=== PATIENT | female | born 1970 | race Hispanic/Latino ===

== ENCOUNTER 2018-01-16 14:39 | Inpatient (IN) | payer BC ==
[~2018-01-16] VITALS: Ht 154.9 cm; Wt 81.2 kg
[2018-01-16] MEDS ORDERED: IBUPROFEN 600 MG TAB PO STA (15:38)
[2018-01-16] MEDS ORDERED: HYDROMORPHONE 1MG/1ML INJ IV STA (15:38)
[2018-01-16] MEDS ORDERED: ONDANSETRON HCL INJ 2 MG/ML VIAL IV STA (15:38)
[2018-01-16 16:01] LABS: BASOPHILS % 0.4 % (0.0-1.0); EOSINOPHILS # (AUTO) 0.1 (0.0-0.4); EOSINOPHILS % 0.9 % (0.0-6.0); HEMATOCRIT 34.3 % (34.2-44.1); HEMOGLOBIN 11.2 g/dL (12.0-16.0); LYMPHOCYTES # (AUTO) 1.7 (1.0-3.2); MEAN CORPUSCULAR HEMOGLOBIN 29.2 pg (28-32); MEAN CORPUSCULAR HGB CONC 32.7 g/dL (31-35); MEAN CORPUSCULAR VOLUME 89.6 fL (81-99); MONOCYTES # (AUTO) 0.9 (0.2-0.8); MONOCYTES % 8.2 % (4.4-11.3); NEUTROPHILS # (AUTO) 8.4 (2.1-6.9); NEUTROPHILS % 74.8 % (38.7-80.0); PLATELET COUNT 391 x10e3/uL (140-360); RED BLOOD COUNT 3.83 x10e6/uL (3.6-5.1); RED CELL DISTRIBUTION WIDTH 13.4 % (11.7-14.4)
--- NOTE | 2018-01-16 16:02 | Diagnostic Imaging Report ---
EXAM: XR CHEST 1 VIEW DATE: 01/16/2018 3:21 PM INDICATION: Postoperative. Swelling. COMPARISON: None FINDINGS: Lines and Tubes: None Heart and Mediastinum: No acute cardiomediastinal findings. Ill-defined soft tissue prominence right paratracheal region statistically confluence vascular structures. Lungs and Pleura: Questionable retrocardiac opacity on the left. Bones and Soft Tissues: No acute findings. IMPRESSION: 1. Minimal retrocardiac opacity on the left statistically atelectasis. Correlation recommended. Signed by: Dr. Julio Copeland MD on 01/16/2018 3:59 PM
[2018-01-16 16:12] LABS: INR 1.41; PROTHROMBIN TIME 16.2 seconds (11.9-14.5)
[2018-01-16 16:13] LABS: PARTIAL THROMBOPLASTIN TIME 41.9 seconds (23.8-35.5)
[2018-01-16 16:20] LABS: ALANINE AMINOTRANSFERASE 165 IU/L (0-55); ALBUMIN 2.9 g/dL (3.5-5.0); ALBUMIN/GLOBULIN RATIO 0.7 (0.8-2.0); ALKALINE PHOSPHATASE 260 IU/L (40-150); ANION GAP 13.6 mmol/L (8-16); BLOOD UREA NITROGEN 8 mg/dL (7-26); BUN/CREATININE RATIO 9 (6-25); CALCIUM 9.1 mg/dL (8.4-10.2); CARBON DIOXIDE 24 mmol/L (22-29); CHLORIDE 103 mmol/L (98-107); CREATININE, SERUM 0.91 mg/dL (0.57-1.11); EST GLOMERULAR FILTRATION RATE > 60 ML/MIN (60-); GLUCOSE 93 mg/dL (74-118); POTASSIUM 3.6 mmol/L (3.5-5.1); SODIUM 137 mmol/L (136-145)
[2018-01-16] MEDS ORDERED: LIDOCAINE HCL 1% LOCAL INJ 20 ML VIAL ONE (16:56)
[2018-01-16] MEDS ORDERED: LIDOCAINE 1% 5ML-MPF INJ ONE (17:00)
[2018-01-16] MEDS: PIPER-TAZ 3.375 GM 50 ML IV SCH (17:03)
[2018-01-16] MEDS: VANCOMYCIN 1GM/NS 250 ML 250 ML IV SCH ×2 (17:30→21:00)
[2018-01-16] MEDS ORDERED: ONDANSETRON HCL INJ 2 MG/ML VIAL IV PRN (18:15)
[2018-01-16] MEDS ORDERED: PRAVASTATIN SOD20 MG PO (18:53)
[2018-01-16] MEDS ORDERED: LEVOTHYROXINE200 MCG PO (18:53)
[2018-01-16] MEDS ORDERED: LISINOPRIL10 MG PO (18:53)
[2018-01-16] MEDS ORDERED: PIPER-TAZ 3.375 GM 50 ML IV SCH (19:00)
[2018-01-16] MEDS: SODIUM CHLORIDE 0.9% 1000ML 1,000 ML IV SCH (19:41)
[2018-01-16 20:57] VITALS: BP 118/66
[2018-01-16 21:00] VITALS: BP 118/66
[2018-01-16 21:02] LABS: LYMPHOCYTES,BODY FLUID 15 %; MONO/MACROPHG,BODY FLUID 1 %; NEUTROPHILS,BODY FLUID 84 %
[2018-01-16 23:00] LABS: BODY FLUID APPEARANCE CLOUDY; BODY FLUID COLOR YELLOW; BODY FLUID TYPE PERITONEAL
[2018-01-16 23:04] LABS: RBC,BODY FLUID 1559 cells/uL; WBC,BODY FLUID 4034 cells/uL
[2018-01-16 23:39] LABS: BILIRUBIN,URINE NEGATIVE (NEGATIVE); CLARITY,URINE CLEAR (CLEAR); COLOR,URINE YELLOW (YELLOW); EPITHELIAL CELLS,URINE FEW /LPF; KETONES,URINE NEGATIVE (NEGATIVE); LEUKOCYTE ESTERASE ,URINE NEGATIVE (NEGATIVE); NITRITE,URINE NEGATIVE (NEGATIVE); PROTEIN,URINE DIPSTICK NEGATIVE (NEGATIVE); RBC,URINE 0-5 /HPF (0-5); URINE UROBILINOGEN 0.2 mg/dL (0.2 - 1); WBC,URINE (MAN) 0-5 /HPF (0-5)
[2018-01-17] VITALS (9 sets, daily range): BP systolic 96–120; BP diastolic 53–62
[2018-01-17] MEDS: PIPER-TAZ 3.375 GM 50 ML IV SCH ×4 (00:29→17:10)
[2018-01-17] MEDS: SODIUM CHLORIDE 0.9% 1000ML 1,000 ML IV SCH ×2 (05:17→16:00)
[2018-01-17 06:03] LABS: BASOPHILS % 0.4 % (0.0-1.0); EOSINOPHILS # (AUTO) 0.2 (0.0-0.4); EOSINOPHILS % 2.1 % (0.0-6.0); HEMATOCRIT 30.5 % (34.2-44.1); HEMOGLOBIN 9.8 g/dL (12.0-16.0); LYMPHOCYTES # (AUTO) 1.6 (1.0-3.2); LYMPHOCYTES % 14.7 % (18.0-39.1); MEAN CORPUSCULAR HGB CONC 32.1 g/dL (31-35); MEAN CORPUSCULAR VOLUME 90.2 fL (81-99); MONOCYTES % 9.5 % (4.4-11.3); NEUTROPHILS % 72.8 % (38.7-80.0); PLATELET COUNT 312 x10e3/uL (140-360); RED BLOOD COUNT 3.38 x10e6/uL (3.6-5.1); RED CELL DISTRIBUTION WIDTH 13.4 % (11.7-14.4)
[2018-01-17 06:23] LABS: ANION GAP 9.8 mmol/L (8-16); BLOOD UREA NITROGEN 11 mg/dL (7-26); BUN/CREATININE RATIO 14 (6-25); CALCIUM 8.2 mg/dL (8.4-10.2); CARBON DIOXIDE 25 mmol/L (22-29); CHLORIDE 110 mmol/L (98-107); EST GLOMERULAR FILTRATION RATE > 60 ML/MIN (60-); GLUCOSE 101 mg/dL (74-118); POTASSIUM 3.8 mmol/L (3.5-5.1); SODIUM 141 mmol/L (136-145)
[2018-01-17] MEDS: ACETAMINOPHEN 325 MG TAB PO PRN ×3 (08:59→22:35)
[2018-01-17] MEDS ORDERED: VANCOMYCIN 1GM/NS 250 ML 250 ML IV SCH (09:00)
[2018-01-17] MEDS: VANCOMYCIN 1GM/NS 250 ML 250 ML IV SCH ×2 (10:09→21:49)
--- NOTE | 2018-01-17 14:54 | Consultation ---
DATE OF CONSULTATION: January 17, 2018 CHIEF COMPLAINT: Abdominal wall inflammation. HISTORY OF PRESENT ILLNESS: The patient is a 47-year-old female who is 3 weeks status post abdominoplasty down in [place]. Patient has noted progressive redness at the incision with increased swelling and discomfort. She denies fever, chills or vomiting. PAST MEDICAL HISTORY: Significant for hypothyroidism. SURGICAL HISTORY: As mentioned, positive for abdominoplasty recently. ALLERGIES: SHE HAS NO DRUG ALLERGIES. SOCIAL HABITS: She does not smoke or drink alcohol. REVIEW OF SYSTEMS: No chest pain, shortness of breath or cough. PHYSICAL EXAMINATION VITALS: Stable. She has a T-max of 100.2. GENERAL: She is awake, alert, in no apparent distress. HEENT: Sclerae are nonicteric. NECK: Supple. LUNGS: Clear. HEART: Regular rate and rhythm. ABDOMEN: Soft. There is a low transverse incision consistent with abdominoplasty. There is evidence of erythema on both sides of the incisions with edema extending to the suprapubic area. No drainage from the incisions. LABS: White cell count 11, hemoglobin 11. Creatinine of 0.9. CT scan showed a large fluid collection in the incision suggestive of abscess versus seroma. ASSESSMENT: Abdominal wall collection post abdominoplasty. PLAN: Percutaneous drainage by interventional radiology to rule out abscess formation. Will follow the patient with you. Job#: [id number]
[2018-01-17 15:28] LABS: CHOL/HDL RATIO 5.6 (3.0-3.6)
--- NOTE | 2018-01-17 15:30 | History and Physical ---
PRIMARY CARE PHYSICIAN: Dr. Mcmahan CHIEF COMPLAINT: Abdominal pain and swelling. HISTORY OF PRESENT ILLNESS: This is a 47-year-old woman with a history of obesity, who underwent a tummy tuck. Drains were removed on January 05. The patient is now developing fever, chills, sweats and rigors at home for the past 3 days with redness of the abdomen and tenderness. Therefore, she went to [place] [facility] and was sent home with some antibiotics. Now she came here due to persistence of her symptoms, rigors, fever and chills. Here, she was found to be septic with infection and was admitted for further evaluation and management. PAST MEDICAL HISTORY: Obesity, status post tummy tuck. Hypothyroidism. PAST SURGICAL HISTORY: Cholecystectomy. ALLERGIES: PER ELECTRONIC MEDICAL RECORD. FAMILY/SOCIAL HISTORY: The patient is single. She has 3 children. Occasional alcohol. No cigarettes or illicits. MEDICATIONS: Per electronic medical record. REVIEW OF SYSTEMS: Denies any dizziness or chest pain. Denies any shortness of breath. Denies any back pain. Denies any headache or visual changes. Denies any leg pain or diarrhea. PHYSICAL EXAMINATION VITAL SIGNS: Have been reviewed. GENERAL: A tired-appearing woman resting in bed. HEENT: Anicteric. Pupils are responsive to light. No oral lesions. CARDIOVASCULAR: Normal S1 and S2. LUNGS: Moderate breath sounds. ABDOMEN: Soft, nondistended. She has a surgical site along the lower border of the abdomen slightly distended. There is erythema present. There is warmth, and there is some edema. EXTREMITIES: No edema or calf tenderness. NEUROLOGIC: Alert, appropriate, moving all extremities. SKIN: Dry. PSYCHIATRIC: Flat affect. NEUROLOGIC: Alert and oriented times 3. LABS: Reviewed. MEDICATIONS: Reviewed. ASSESSMENT: This is a 47-year-old woman. 1. Status post sepsis. 2. Transaminitis. 3. Abdominal wall cellulitis. 4. Obesity. 5. Hypothyroidism. 6. Spontaneous bacterial peritonitis. PLAN 1. Will continue with IV vancomycin and IV Zosyn. 2. Follow up cultures. 3. Surgical team has been consulted. 4. The white blood cell count in the peritoneal fluid is 4034. Will continue with the antibiotics for spontaneous bacterial peritonitis and follow up cultures. 5. Continue Synthroid. 6. Use SCDs for DVT prophylaxis. 7. Monitor closely. Scan for diabetes and obtain lipid panel. Job#: [id number] DORIS
[2018-01-17] MEDS: HYDROMORPHONE 1MG/1ML INJ IV PRN (16:00)
[2018-01-17] MEDS: DOCUSATE SODIUM 100 MG CAP PO SCH (17:10)
[2018-01-17] MEDS: SENNOSIDES 8.6 MG TAB PO SCH (17:10)
[2018-01-18] VITALS (10 sets, daily range): BP systolic 90–108; BP diastolic 52–58
[2018-01-18] MEDS: PIPER-TAZ 3.375 GM 50 ML IV SCH ×5 (00:33→23:14)
[2018-01-18] MEDS: LEVOTHYROXINE SODIUM 100 MCG TAB PO SCH (05:24)
[2018-01-18] MEDS: SODIUM CHLORIDE 0.9% 1000ML 1,000 ML IV SCH ×3 (05:24→22:44)
[2018-01-18 07:04] LABS: BASOPHILS % 0.2 % (0.0-1.0); EOSINOPHILS # (AUTO) 0.2 (0.0-0.4); EOSINOPHILS % 1.8 % (0.0-6.0); HEMATOCRIT 30.6 % (34.2-44.1); HEMOGLOBIN 9.9 g/dL (12.0-16.0); LYMPHOCYTES # (AUTO) 1.7 (1.0-3.2); LYMPHOCYTES % 14.3 % (18.0-39.1); MEAN CORPUSCULAR HEMOGLOBIN 28.8 pg (28-32); MEAN CORPUSCULAR HGB CONC 32.4 g/dL (31-35); MONOCYTES # (AUTO) 0.9 (0.2-0.8); MONOCYTES % 7.8 % (4.4-11.3); NEUTROPHILS # (AUTO) 8.9 (2.1-6.9); NEUTROPHILS % 75.4 % (38.7-80.0); PLATELET COUNT 326 x10e3/uL (140-360); RED BLOOD COUNT 3.44 x10e6/uL (3.6-5.1); RED CELL DISTRIBUTION WIDTH 13.3 % (11.7-14.4)
--- NOTE | 2018-01-18 07:08 | Progress Note ---
DATE: January 18, 2018 TIME: 6:44 a.m. OVERNIGHT: No events. REVIEW OF SYSTEMS: Denies any dizziness, chest pain, shortness of breath, fever, chills, sweats, nausea, vomiting, and diarrhea. PHYSICAL EXAMINATION VITAL SIGNS: Reviewed. GENERAL: A tired-appearing woman resting in bed. HEENT: Anicteric. CARDIOVASCULAR: Normal S1 and S2. LUNGS: Moderate breath sounds. ABDOMEN: Soft and nondistended. Old surgical site is less erythematous. There is mild tenderness. EXTREMITIES: No edema. SKIN: Dry. PSYCHIATRIC: Normal affect. NEUROLOGICAL: Alert and appropriate. LABS: Reviewed. MEDICATIONS: Reviewed. ASSESSMENT: A 47-year-old woman with: 1. Sepsis. 2. Abdominal wall cellulitis. 3. Transaminitis. 4. Obesity. 5. Hypothyroidism. 6. Spontaneous bacterial peritonitis. PLAN 1. Continue IV vancomycin and IV Zosyn. 2. Follow up cultures. 3. Follow up surgical plan. 4. All cultures negative to date. 5. Leukocytosis beginning to improve. Obtain labs today. 6. Hemoglobin A1c 5.2, LDL 114. Job#: [id number] IN
[2018-01-18 07:26] LABS: ANION GAP 10.8 mmol/L (8-16); BLOOD UREA NITROGEN 10 mg/dL (7-26); BUN/CREATININE RATIO 12 (6-25); CALCIUM 8.4 mg/dL (8.4-10.2); CARBON DIOXIDE 25 mmol/L (22-29); CHLORIDE 104 mmol/L (98-107); CREATININE, SERUM 0.84 mg/dL (0.57-1.11); EST GLOMERULAR FILTRATION RATE > 60 ML/MIN (60-); GLUCOSE 93 mg/dL (74-118); POTASSIUM 3.8 mmol/L (3.5-5.1); SODIUM 136 mmol/L (136-145)
[2018-01-18] MEDS: VANCOMYCIN 1GM/NS 250 ML 250 ML IV SCH ×2 (08:19→20:48)
[2018-01-18] MEDS ORDERED: NON-FORMULARY MEDICATION (Levothyroxine Sodium 200 MCG) PO SCH (09:00)
[2018-01-18] MEDS: SENNOSIDES 8.6 MG TAB PO SCH ×2 (09:00→17:18)
[2018-01-18] MEDS: DOCUSATE SODIUM 100 MG CAP PO SCH ×2 (09:00→17:18)
[2018-01-18] MEDS ORDERED: ACETAMINOPHEN 1000 MG/100 ML IV PRN (12:30)
[2018-01-18] MEDS ORDERED: HYDROMORPHONE 2MG/ML 2 MG/ML ML ONE (14:15)
[2018-01-18] MEDS: HYDROMORPHONE 1MG/1ML INJ IV PRN (14:22)
--- NOTE | 2018-01-18 15:33 | Diagnostic Imaging Report ---
Procedure: Ultrasound-guided anterior abdominal wall drainage graining machine operator: Dar Arevalo MD Pre-operative diagnosis: Anterior abdominal wall fluid collection Post-operative diagnosis: Anterior abdominal wall fluid collection Sedation: Local (1% subcutaneous lidocaine) Estimated blood loss: None Implants: None DISCUSSION: Informed consent was obtained from the patient and documented in the medical record. The patient was placed in the supine position. Initial ultrasound demonstrated an anterior abdominal wall collection, which extended bilaterally. The right anterior abdominal wall was prepped and draped in standard sterile fashion. 1% lidocaine was infiltrated into the skin and subcutaneous tissues for local anesthesia. Then under continuous sonographic guidance, an 18 gauge Chiba needle was advanced into the right aspect of the collection. Cloudy serous fluid was aspirated for lab. An Amplatz wire was placed into the needle. Dilatation was performed. Subsequently, a 10 Fr Uresil catheter was placed into the collection. The catheter was pigged and position confirmed by ultrasound. The catheter was connected to bag drainage. Approximately 70 cc of cloudy serous fluid was aspirated and the collection was gently irrigated with normal saline. An Ethilon suture was placed to secure the catheter. A sterile dressing was placed. The patient tolerated the procedure well. IMPRESSION: Ultrasound-guided drainage of anterior abdominal wall collection with aspiration of 70 cc of cloudy serous fluid. PLAN: Continue to flush 10 cc of normal saline to the patient and 10 cc to the bag. Awaiting microbiology results. Signed by: Dr. Dar Arevalo MD on 01/18/2018 3:29 PM
[2018-01-19] VITALS (7 sets, daily range): BP systolic 96–132; BP diastolic 55–69
[2018-01-19 06:06] LABS: BASOPHILS % 0.3 % (0.0-1.0); EOSINOPHILS # (AUTO) 0.2 (0.0-0.4); EOSINOPHILS % 2.2 % (0.0-6.0); HEMATOCRIT 30.4 % (34.2-44.1); HEMOGLOBIN 9.8 g/dL (12.0-16.0); LYMPHOCYTES # (AUTO) 2.1 (1.0-3.2); LYMPHOCYTES % 19.8 % (18.0-39.1); MEAN CORPUSCULAR HEMOGLOBIN 28.7 pg (28-32); MEAN CORPUSCULAR HGB CONC 32.2 g/dL (31-35); MEAN CORPUSCULAR VOLUME 88.9 fL (81-99); MONOCYTES # (AUTO) 0.8 (0.2-0.8); MONOCYTES % 7.4 % (4.4-11.3); NEUTROPHILS # (AUTO) 7.4 (2.1-6.9); NEUTROPHILS % 69.6 % (38.7-80.0); PLATELET COUNT 372 x10e3/uL (140-360); RED BLOOD COUNT 3.42 x10e6/uL (3.6-5.1); RED CELL DISTRIBUTION WIDTH 13.3 % (11.7-14.4)
[2018-01-19] MEDS: SODIUM CHLORIDE 0.9% 1000ML 1,000 ML IV SCH ×2 (06:13→18:30)
[2018-01-19 06:26] LABS: ALANINE AMINOTRANSFERASE 161 IU/L (0-55); ALBUMIN 2.5 g/dL (3.5-5.0); ALBUMIN/GLOBULIN RATIO 0.6 (0.8-2.0); ALKALINE PHOSPHATASE 245 IU/L (40-150); ANION GAP 11.4 mmol/L (8-16); BLOOD UREA NITROGEN 9 mg/dL (7-26); BUN/CREATININE RATIO 11 (6-25); CALCIUM 8.6 mg/dL (8.4-10.2); CARBON DIOXIDE 25 mmol/L (22-29); CHLORIDE 101 mmol/L (98-107); EST GLOMERULAR FILTRATION RATE > 60 ML/MIN (60-); GLUCOSE 92 mg/dL (74-118); POTASSIUM 3.4 mmol/L (3.5-5.1); SODIUM 134 mmol/L (136-145)
[2018-01-19] MEDS: LEVOTHYROXINE SODIUM 100 MCG TAB PO SCH (06:40)
[2018-01-19] MEDS: PIPER-TAZ 3.375 GM 50 ML IV SCH ×3 (06:40→17:19)
[2018-01-19] MEDS ORDERED: POTASSIUM CHLORIDE 20 MEQ TAB CR PO STA (06:57)
[2018-01-19] MEDS: SENNOSIDES 8.6 MG TAB PO SCH ×2 (09:02→17:19)
[2018-01-19] MEDS: DOCUSATE SODIUM 100 MG CAP PO SCH ×2 (09:02→17:19)
[2018-01-19] MEDS: VANCOMYCIN 1GM/NS 250 ML 250 ML IV SCH ×2 (09:02→21:30)
[2018-01-19] MEDS: ACETAMINOPHEN 325 MG TAB PO PRN (20:47)
[2018-01-20] VITALS: BP 101/56
[2018-01-20] MEDS: SODIUM CHLORIDE 0.9% 1000ML 1,000 ML IV SCH (02:13)
[2018-01-20 04:00] VITALS: BP 126/64
[2018-01-20 05:43] LABS: BASOPHILS % 0.6 % (0.0-1.0); EOSINOPHILS # (AUTO) 0.3 (0.0-0.4); EOSINOPHILS % 4.9 % (0.0-6.0); HEMATOCRIT 30.8 % (34.2-44.1); HEMOGLOBIN 9.9 g/dL (12.0-16.0); MEAN CORPUSCULAR HEMOGLOBIN 28.8 pg (28-32); MEAN CORPUSCULAR HGB CONC 32.1 g/dL (31-35); MEAN CORPUSCULAR VOLUME 89.5 fL (81-99); MONOCYTES # (AUTO) 0.7 (0.2-0.8); MONOCYTES % 10.5 % (4.4-11.3); NEUTROPHILS # (AUTO) 3.7 (2.1-6.9); NEUTROPHILS % 53.7 % (38.7-80.0); PLATELET COUNT 356 x10e3/uL (140-360); RED BLOOD COUNT 3.44 x10e6/uL (3.6-5.1); RED CELL DISTRIBUTION WIDTH 13.5 % (11.7-14.4)
[2018-01-20] MEDS: PIPER-TAZ 3.375 GM 50 ML IV SCH ×2 (05:54)
[2018-01-20] MEDS: LEVOTHYROXINE SODIUM 100 MCG TAB PO SCH (05:54)
[2018-01-20 06:00] LABS: ANION GAP 13.9 mmol/L (8-16); BLOOD UREA NITROGEN 8 mg/dL (7-26); BUN/CREATININE RATIO 10 (6-25); CALCIUM 8.8 mg/dL (8.4-10.2); CARBON DIOXIDE 25 mmol/L (22-29); CHLORIDE 104 mmol/L (98-107); CREATININE, SERUM 0.82 mg/dL (0.57-1.11); EST GLOMERULAR FILTRATION RATE > 60 ML/MIN (60-); GLUCOSE 94 mg/dL (74-118); POTASSIUM 3.9 mmol/L (3.5-5.1); SODIUM 139 mmol/L (136-145)
[2018-01-20] MEDS ORDERED: FLAGYL500 MG PO (07:16)
[2018-01-20] MEDS ORDERED: CLINDAMYCIN HC150 MG PO (07:16)
[2018-01-20] MEDS ORDERED: SENOKOT8.6 MG PO (07:16)
[2018-01-20] MEDS ORDERED: COLACE100 M1 PO (07:16)
[2018-01-20] MEDS ORDERED: CIPRO500 MG PO (07:16)
[2018-01-20 08:05] LABS: BLAST CELLS % MANUAL 1; EOSINOPHILS % (MANUAL) 6 % (0-7); LYMPHOCYTES % (MANUAL) 14 % (19-48); MONOCYTES % (MANUAL) 13 % (3.4-9.0); NEUTROPHILS % (MANUAL) 64 % (40-74)
[2018-01-20 08:08] VITALS: BP 129/65
[2018-01-20 08:18] LABS: HYPOCHROMASIA SLIGHT; PLATELET ESTIMATE ADEQUATE
[2018-01-20 08:20] LABS: RBC MORPHOLOGY COMMENT NORMAL
[2018-01-20 08:21] LABS: ANISOCYTOSIS SLIGHT; HOWELL-JOLLY BODIES FEW; PLATELET MORPHOLOGY COMMENT FEW LARGE
[2018-01-20] MEDS: SENNOSIDES 8.6 MG TAB PO SCH (08:26)
[2018-01-20] MEDS: DOCUSATE SODIUM 100 MG CAP PO SCH (08:26)
[2018-01-20 09:34] VITALS: BP 129/65
--- NOTE | 2018-01-25 00:46 | Progress Note ---
DATE: January 19, 2018 TIME: 7 a.m. OVERNIGHT: No events. REVIEW OF SYSTEMS: Denies any dizziness, chest pain, shortness of breath, fever, chills, sweats, nausea, vomiting, diarrhea. PHYSICAL EXAMINATION: VITAL SIGNS: Reviewed. GENERAL APPEARANCE: Tired-appearing woman resting in bed. HEENT: Anicteric. CARDIOVASCULAR: Normal S1 and S2. LUNGS: Moderate breath sounds. ABDOMEN: Soft, nontender, nondistended. Old surgical site is less erythematous. SKIN: Dry. PSYCHIATRIC: Flat affect. NEUROLOGICAL: Alert and appropriate. LABS: Reviewed. MEDICATIONS: Reviewed. ASSESSMENT: A 47-year-old woman. 1. Sepsis. 2. Abdominal wall cellulitis. 3. Transaminitis. 4. Obesity. 5. Hypothyroidism. 6. Spontaneous bacterial peritonitis. PLAN: 1. Continue antibiotics, IV vancomycin, IV Zosyn. 2. Follow up cultures. 3. Hemoglobin A1c 5.2, LDL 114. 4. Follow up surgical team. Job#: [id number]
--- NOTE | 2018-01-25 00:58 | Discharge Summary ---
PRINCIPAL DIAGNOSES 1. Sepsis. 2. Abdominal wall cellulitis. 3. Transaminitis and obesity. 4. Hypothyroidism. 5. Spontaneous bacterial peritonitis. SECONDARY DIAGNOSIS: Obesity. CHIEF COMPLAINT: Abdominal wall pain and swelling. HISTORY OF PRESENT ILLNESS: This is a 47-year-old woman with abdominal pain and swelling. Please refer to H and P for further details. HOSPITAL COURSE: Patient found to be septic and had abdominal wall cellulitis. Underwent interventional radiology directed drainage. She was found to have a spontaneous bacterial peritonitis, treated with IV vancomycin and IV Zosyn. She also has obesity transaminitis. Patient transitioned to home with oral antibiotics for continued care. Hemoglobin A1c was 5.2, LDL 114. DISCHARGE MEDICATIONS: Per electronic medical record that includes all antibiotics. FOLLOWUP: With primary care doctor in 1 week. CONDITION ON DISCHARGE: Stable and improving. DISCHARGE LOCATION: Home. KENAN COLES MD Job#: [id number]
== END 2018-01-20 09:44 | disposition home or self-care (01) | DRG 862 ==
LOC: ER 14:39 → ERHOLD 18:35 → MED/SURG 19:54
PROVIDERS: ADMIT Internal Medicine; ATTEND Internal Medicine
PROC: 0W9F30Z Drainage of Abdominal Wall with Drainage Device, Percutaneous Approach (ICD-10-PCS; principal; 2018-01-18)
DX: T81.4XXA Infection following a procedure, initial encounter (principal); A41.9 Sepsis, unspecified organism; K65.2 Spontaneous bacterial peritonitis; L76.34 Postprocedural seroma of skin and subcutaneous tissue following other procedure; Y83.4 Other reconstructive surgery as the cause of abnormal reaction of the patient, or of later complication, without mention of misadventure at the time of the procedure; Y81.3 Surgical instruments, materials and general- and plastic-surgery devices (including sutures) associated with adverse incidents; E66.9 Obesity, unspecified; Z68.33 Body mass index [BMI] 33.0-33.9, adult; E03.9 Hypothyroidism, unspecified; B96.89 Other specified bacterial agents as the cause of diseases classified elsewhere; R74.0 Nonspecific elevation of levels of transaminase and lactic acid dehydrogenase [LDH]; Z79.52 Long term (current) use of systemic steroids
CPT/HCPCS: 36415; 49406; 71045; 74470; 80048; 80053; 80061; 80202; 81001; 83036; 83605; 85025; 85610; 85730; 87040; 87070; 87205; 88112; 88305; 89051; 99284; C1729; J1170; J2001; J2405; J2543; J3370; J7030